=== PATIENT | female | born 1980 | race African-American/Black ===

== ENCOUNTER 2017-06-29 18:33 | Emergency (ER) | payer MEDICARE, MEDICAID ==
[2017-06-29 18:42] VITALS: BP 128/75
[2017-06-29] MEDS ORDERED: CLINDAMYCIN HCL 150 MG CAPSULE PO ONE (18:58)
--- NOTE | 2017-06-29 18:59 | ER Document Report ---
HPI - HPI Patient complains to provider of: Skin infection Onset: Yesterday Quality of pain: Achy Pain Level: 4 Context: Patient complains of a pustular skin lesion to right lower extremity that started to develop yesterday. Patient states she was treated for scabies last week but complains of continued skin lesions and itching. Patient does state that she did launder her bed linens as well. Associated Symptoms: Other - Tender skin lesion to right leg. denies: Fever Exacerbated by: Denies Relieved by: Denies Similar symptoms previously: No Recently seen / treated by doctor: Yes - ROS ROS below otherwise negative: Yes Systems Reviewed and Negative: Yes All other systems reviewed and negative - CONSTITUTIONAL Constitutional: DENIES: Fever, Chills - GASTROINTESTINAL Gastrointestinal: DENIES: Nausea - MUSCULOSKELETAL Musculoskeletal: REPORTS: Extremity pain - DERM Skin Color: Erythema Skin Problems: Pustule Past Medical History - General Information source: Patient - Social History Smoking Status: Current Every Day Smoker Smoking Education Provided: Yes Drug Abuse: None Occupation: None Family History: Reviewed & Not Pertinent - Past Medical History Cardiac Medical History: Reports: Hx Hypertension Endocrine Medical History: Reports: Hx Diabetes Mellitus Type 2 GI Medical History: Reports: Hx Gastroesophageal Reflux Disease Past Surgical History: Reports: Hx Appendectomy, Hx Cholecystectomy, Hx Gynecologic Surgery, Hx Herniorrhaphy, Hx Hysterectomy Vertical Provider Document - CONSTITUTIONAL Agree With Documented VS: Yes Exam Limitations: No Limitations General Appearance: WD/WN, No Apparent Distress - INFECTION CONTROL TRAVEL OUTSIDE OF THE [place] IN LAST 30 DAYS: No - HEENT HEENT: Atraumatic, Normocephalic - NECK Neck: Normal Inspection - RESPIRATORY Respiratory: Breath Sounds Normal, No Respiratory Distress O2 Sat by Pulse Oximetry: 97 - CARDIOVASCULAR Cardiovascular: Regular Rate, Regular Rhythm - MUSCULOSKELETAL/EXTREMETIES Musculoskeletal/Extremeties: MAEW, Tender - Tender pustular skin lesion to middle third of right lower leg very minimal indurated area to leg concerning for developing abscess - NEURO Level of Consciousness: Awake, Alert, Appropriate Motor/Sensory: No Motor Deficit - DERM Integumentary: Warm, Dry, Rash - Patient with erythematous skin lesions to bilateral upper and lower extremities concerning for scabies, skin lesions with excoriations and in webspace of hand and wrist area Course - Vital Signs Vital signs: Temp Pulse Resp BP Pulse Ox 99.3 F 89 20 128/75 H 97 11/30/17 18:41 06/29/17 18:41 06/29/17 18:41 06/29/17 18:41 06/29/17 18:41 Procedures - Incision and Drainage Right Leg Type: Simple I&D procedure: Sterile dressing applied Incision Method: Incision made with needle Amount/type of drainage: scant amount of purulent drainage Adult Front & Back picture: 1 - pustule Discharge - Discharge Clinical Impression: Abscess, Hx of scabies Condition: Stable Disposition: HOME, SELF-CARE Instructions: Abscess ([facility]), Anti-Mite Skin Creams, Clindamycin ([facility]), Scabies ([facility]) Additional Instructions: Return immediately for any new or worsening symptoms Followup with your primary care provider, call tomorrow to make a followup appointment Prescriptions: Clindamycin HCl [Cleocin Hcl] 300 mg PO QID #28 capsule Mupirocin [Bactroban 2% Ointment 22 gm] 1 applic TP TID #22 gm Permethrin [Elimite] 60 gm TP ONCE #60 gm Forms: Smoking Cessation Education Referrals: ETELVINA BAILEY MD [NO LOCAL MD] - Follow up as needed
== END 2017-06-29 19:19 | disposition home or self-care (01) ==
LOC: ER 18:33
PROC: 0H9KXZZ Drainage of Right Lower Leg Skin, External Approach (ICD-10-PCS; principal; 2017-06-29)
DX: L02.415 Cutaneous abscess of right lower limb (principal)
CPT/HCPCS: 99283; 10060; A9270

== ENCOUNTER 2017-07-17 18:48 | Emergency (ER) | payer MEDICARE, MEDICAID ==
[2017-07-17 18:55] VITALS: BP 120/77
[2017-07-17] MEDS ORDERED: KETOROLAC TROMETHAMINE INJ/PF 30 MG/1 ML SDV IM ONE (19:13)
--- NOTE | 2017-07-17 19:18 | ER Document Report ---
HPI - HPI Pain Level: 4 Notes: Patient is a 36-year-old female with a history of hypertension, diabetes, chronic low back pain who presents ED complaining of re-exacerbation of her lower back pain about an hour ago without any known injury. Patient states that she has had this pain in the past. Patient states the pain is in the right side and will occasionally radiate down into the right posterior leg. Patient states that her doctor usually gives her pills and shots for her pain, but did not specify as to what medicine specifically. She still eating and drinking w/o difficulty. She denies any surgeries or procedures to her lower back. She denies any previous history of abscesses. Patient does admit to smoking but denies IV drug use. Denies any headache, fever, neck pain, URI, sore throat, chest pain, palpitations, syncope, cough, shortness of breath, wheeze, dyspnea, abdominal pain, nausea/vomiting/diarrhea, urinary retention, dysuria, hematuria, loss of control of bowel or bladder, numbness/tingling, saddle anesthesia, muscle paralysis/weakness, or rash. - ROS Notes: REVIEW OF SYSTEMS: CONSTITUTIONAL : Denies fever, chills, or sweats. Denies recent illness. EENT: Denies eye, ear, throat, or mouth pain or symptoms. Denies nasal or sinus congestion or discharge. Denies throat, tongue, or mouth swelling or difficulty swallowing. CARDIOVASCULAR: Denies chest pain. Denies palpitations or racing or irregular heart beat. Denies ankle edema. RESPIRATORY: Denies cough, cold, or chest congestion. Denies shortness of breath, difficulty breathing, or wheezing. GASTROINTESTINAL: Denies abdominal pain or distention. Denies nausea, vomiting , or diarrhea. Denies blood in vomitus, stools, or per rectum. Denies black, tarry stools. Denies constipation. GENITOURINARY: Denies difficulty urinating, painful urination, burning, frequency, blood in urine, or discharge. FEMALE GENITOURINARY: Denies vaginal bleeding, heavy or abnormal periods, irregular periods. Denies vaginal discharge or odor. MUSCULOSKELETAL: see hpi SKIN: Denies rash, lesions or sores. NEUROLOGICAL: Denies dizziness or lightheadedness. Denies headache. Denies weakness or paralysis or loss of use of either side. Denies problems with gait or speech. Denies sensory loss, numbness, or tingling. Denies seizures. ALL OTHER SYSTEMS REVIEWED AND NEGATIVE. Dictation was performed using [employer] voice recognition software Past Medical History - Social History Smoking Status: Current Every Day Smoker Family History: Reviewed & Not Pertinent - Past Medical History Cardiac Medical History: Reports: Hx Hypertension Endocrine Medical History: Reports: Hx Diabetes Mellitus Type 2 Renal/ Medical History: Denies: Hx Peritoneal Dialysis GI Medical History: Reports: Hx Gastroesophageal Reflux Disease Past Surgical History: Reports: Hx Appendectomy, Hx Cholecystectomy, Hx Gynecologic Surgery, Hx Herniorrhaphy, Hx Hysterectomy Vertical Provider Document - CONSTITUTIONAL Agree With Documented VS: Yes Notes: PHYSICAL EXAMINATION: GENERAL: Well-appearing, well-nourished and in no acute distress. LUNGS: Breath sounds clear to auscultation bilaterally and equal. No wheezes rales or rhonchi. HEART: Regular rate and rhythm without murmurs, rubs, gallops. ABDOMEN: Soft, nontender, nondistended abdomen. No guarding, no rebound. No masses appreciated. Normal bowel sounds present. No CVA tenderness bilaterally. No pulsatile mass Musculoskeletal: LE's b/l: FROM to passive/active. Strength 5+/5. No deficits noted. No bony tenderness of extremities. Back: FROM to passive/active. Strength 5+/5. No vertebral point tenderness, stepoffs, or deformities. No other bony tenderness, erythema, swelling, or ecchymosis. SLR negative b/l. + tenderness to the rt L-paraspinal mm and rt SI jt. Extremities: No cyanosis, clubbing, or edema b/l. Peripheral pulses 2+. Capillary refill less than 2 seconds. NEUROLOGICAL: Normal speech, ataxic gait. Normal sensory, motor exams. Reflexes 2+ b/l. PSYCH: Normal mood, normal affect. SKIN: Warm, Dry, normal turgor, no rashes or lesions noted. - INFECTION CONTROL TRAVEL OUTSIDE OF THE [place] IN LAST 30 DAYS: No - RESPIRATORY O2 Sat by Pulse Oximetry: 98 Course - Re-evaluation Re-evalutation: 07/17/17 19:17 Patient is an afebrile, well-hydrated, 36-year-old female who presents to the ED with acute on chronic low back pain, suspect muscle strain and possible spasm. Vitals are stable. PE is otherwise unremarkable for any focal neurological deficits. No imaging or labs warranted at this time based on H&P. Toradol given IM today. Low suspicion for any meningitis, fracture, expanding /ruptured AAA, cauda equina syndrome, epidural mass lesion/abscess, herniated disc causing severe spinal stenosis, or other systemic infection at this time. Patient is aware that her condition can change from initial presentation and that she needs monitor symptoms closely for any acute changes. I will send her home with a prescription for naproxen and baclofen. Recheck with your PCM in 3- 5 days. Consider consult with orthopedics physical therapy. Return to the ED with any worsening/concerning symptoms otherwise as reviewed in discharge. Patient is in agreement. - Vital Signs Vital signs: Temp Pulse Resp BP Pulse Ox 98.7 F 85 18 120/77 98 07/17/17 18:54 07/17/17 18:54 07/17/17 18:54 07/17/17 18:54 07/17/17 18:54 Discharge - Discharge Clinical Impression: Low back pain Qualifiers: Chronicity: acute Back pain laterality: right Sciatica presence: without sciatica Qualified Code(s): M54.5 - Low back pain Condition: Stable Disposition: HOME, SELF-CARE Instructions: Low Back Pain ([facility]), Muscle Strain ([facility]), Warm Packs ([facility]), Ice Packs ([facility]) Additional Instructions: Rest, Ice Tylenol/ibuprofen as needed Light stretches daily Strength exercises as able Moist heat and massage may help F/u with your PCP in 3-5 days for a recheck Consider consult(s) with Orthopedics/physical therapy for ongoing/worsening symptoms Return to the ED with any worsening symptoms and/or development of fever, headache, chest pain, palpitations, syncope, shortness of breath, trouble breathing, abdominal pain, n/v/d, blood in stool/urine, loss of control of bowel /bladder, urinary retention, muscle weakness/paralysis, saddle anesthesia, numbness/tingling, or other worsening symptoms that are concerning to you. Prescriptions: Baclofen [Baclofen 10 mg Tablet] 5 - 10 mg PO BID PRN #10 tablet PRN Reason: Naproxen 500 mg PO BID PRN #30 tablet PRN Reason: Forms: Smoking Cessation Education Referrals: [facility] [Provider Group] - Follow up as needed
== END 2017-07-17 19:49 | disposition home or self-care (01) ==
LOC: ER 18:48
DX: M54.5 Low back pain (principal); G89.29 Other chronic pain; I10 Essential (primary) hypertension; E11.9 Type 2 diabetes mellitus without complications; F17.200 Nicotine dependence, unspecified, uncomplicated
CPT/HCPCS: 99283; 96372; J1885

== ENCOUNTER 2017-07-27 09:43 | Observation (INO) | payer MEDICARE, MEDICAID ==
[2017-07-27] MEDS ORDERED: ASPIRIN 325 MG TABLET PO ONE (10:21)
--- NOTE | 2017-07-27 10:39 | ER Document Report ---
ED General - General Chief Complaint: Shortness Of Breath Stated Complaint: CHEST PAIN,SHORTNESS OF BREATH Time Seen by Provider: 07/27/17 10:13 Notes: 36-year-old female presents with chest pain left sided pleuritic since 8 AM, constant and non-positional. Nonradiating. Positive shortness of breath. Onset while doing dishes. She has a history of chest pain and has had 3 stress test but not "for a long time." She has intermittent right leg swelling which is not active now. No cough hemoptysis or history of blood clots. She takes a regimen of medications suggesting that she may have risk factors for cardiac disease including metoprolol and statin. TRAVEL OUTSIDE OF THE [place] IN LAST 30 DAYS: No - Related Data Allergies/Adverse Reactions: Sulfa (Sulfonamide Antibiotics) Allergy (Verified 07/17/17 18:50) Past Medical History - Social History Smoking Status: Never Smoker Family History: Reviewed & Not Pertinent - Past Medical History Cardiac Medical History: Reports: Hx Hypertension Endocrine Medical History: Reports: Hx Diabetes Mellitus Type 2 Renal/ Medical History: Denies: Hx Peritoneal Dialysis GI Medical History: Reports: Hx Gastroesophageal Reflux Disease Past Surgical History: Reports: Hx Appendectomy, Hx Cholecystectomy, Hx Gynecologic Surgery, Hx Herniorrhaphy, Hx Hysterectomy Review of Systems - Review of Systems Notes: REVIEW OF SYSTEMS GEN: Denies fever, chills, weight loss ENT: Denies sore throat, nasal discharge, ear pain EYES: Denies blurry vision, eye pain, discharge CV: Pain no edema RESP: Cough no wheezing or shortness of breath GI: Denies abdominal pain, nausea, vomiting, diarrhea MSK: Denies joint pain/swelling, edema, SKIN: Denies rash, skin lesions LYMPH: Denies swollen glands/lymph nodes NEURO: Denies headache, focal weakness or numbness, dizziness PSYCH: Denies depression, suicidal or homicidal ideation PHYSICAL EXAMINATION General: No acute distress, well-nourished Head: Atraumatic, normocephalic ENT: Mouth normal, oropharynx moist, no exudates or tonsillar enlargement Eyes: Conjunctiva normal, pupils equal, lids normal Neck: No JVD, supple, no guarding CVS: Normal rate, regular rhythm, no murmurs Resp: No resp distress, equal and normal breath sounds bilaterally GI: Nondistended, soft, no tenderness to palpation, no rebound or guarding Ext: No deformities, no edema, normal range of motion in upper and lower ext Back: No CVA or midline TTP Skin: No rash, warm Lymphatic: No lymphadeopathy noted Neuro: Awake, alert. Face symmetric. GCS 15. Physical Exam - Vital signs Vitals: Resp 9 L 07/27/17 10:22 Course - Re-evaluation Re-evalutation: 07/27/17 10:37 36-year-old female presented with chest pain or shortness of breath which has characteristics both of pulmonary embolus and ischemic heart disease. No useful history in our system and is actually followed in [place]. She is new to [place]. Her vital signs are normal but her EKG shows diffuse T-wave inversions. This could either be seen with pulmonary embolus or ischemia. I will send a d-dimer as well as treat her with aspirin and nitroglycerin, troponin will be pending as well. 07/27/17 11:26 D-dimer negative. Pain slightly improved with nitroglycerin. Aspirin is been given. Will admit. Spoke with Dr. cavanaugh who accepted. - Vital Signs Vital signs: Temp Pulse Resp BP Pulse Ox 13 105/63 100 07/27/17 11:16 07/27/17 11:16 07/27/17 11:16 - Laboratory Result Diagrams: 07/27/17 10:20 07/27/17 10:20 Laboratory results interpreted by me: 07/27/17 07/27/17 10:20 10:20 Lymphocytes % 46.5 H Potassium 3.5 L Glucose 186 H - EKG Interpretation by Wi EKG shows normal: Sinus rhythm Rate: Normal Rhythm: NSR When compared to previous EKG there are: Previous EKG unavailable Additional EKG results interpreted by me: 07/27/17 10:38 T-wave inversion in nearly every lead, no priors. No ST elevation or depression noted. Critical Care Note - Critical Care Note Total time excluding time spent on procedures (mins): 32 - The above patient is critically ill. Not including procedures, but including direct re-evaluations, speaking with patient and/or consultants, interpreting results, and documenting , I spent the total amount of minute listed listed above on critical care time Discharge - Discharge Clinical Impression: Unstable angina Condition: Good Disposition: ADMITTED INPATIENT Admitting Provider: Hospitalist - Treatment Unit Admitted: Telemetry - [place]
[2017-07-27 10:47] LABS: ABSOLUTE BASOPHILS # (AUTO) 0.1 10^3/uL (0.0-0.2); ABSOLUTE EOSINOPHILS # (AUTO) 0.2 10^3/uL (0.0-0.6); ABSOLUTE LYMPHOCYTES (AUTO) 3.5 10^3/uL (0.5-4.7); ABSOLUTE MONOCYTES (AUTO) 0.6 10^3/uL (0.1-1.4); ABSOLUTE NEUT (AUTO) 3.2 10^3/uL (1.7-8.2); BASOPHILS % (AUTO) 0.7 % (0-2); EOSINOPHILS % (AUTO) 2.2 % (0-6); HEMATOCRIT 40.2 % (36.0-47.0); LYMPHOCYTES % (AUTO) 46.5 % (13-45); MEAN CORPUSCULAR HGB CONC 32.2 g/dL (32.0-36.0); MEAN CORPUSCULAR VOLUME 87 fl (80-97); MONOCYTES % (AUTO) 7.8 % (3-13); PLATELET COUNT 281 10^3/uL (150-450); RED BLOOD COUNT 4.63 10^6/uL (3.72-5.28); RED CELL DISTRIBUTION WIDTH 13.6 % (11.5-14.0); SEGMENTED NEUTROPHILS % (AUTO) 42.8 % (42-78); TOTAL CELLS COUNTED % (AUTO) 100 %; WHITE BLOOD COUNT 7.4 10^3/uL (4.0-10.5)
[2017-07-27] MEDS: NITROGLYCERIN 0.4 MG/TAB 25 TAB/BOTTLE SL PRN ×2 (11:06→11:18)
[2017-07-27 11:10] LABS: ANION GAP 12 (5-19); BLOOD UREA NITROGEN 13 mg/dL (7-20); CARBON DIOXIDE 28 mmol/L (22-30); CHLORIDE 105 mmol/L (98-107); GLUCOSE 186 mg/dL (75-110); POTASSIUM 3.5 mmol/L (3.6-5.0); SODIUM 144.9 mmol/L (137-145)
[2017-07-27] MEDS ORDERED: NITROGLYCERIN 0.4 MG/TAB 25 TAB/BOTTLE SL PRN (11:43)
[2017-07-27] MEDS ORDERED: MORPHINE SULFATE 10 MG/ML INJ IV PRN (11:43)
[2017-07-27] MEDS ORDERED: MAG HYDROX/AL HYDROX/SIMETH SUSP 30 ML UDCUP PO PRN (11:43)
[2017-07-27] MEDS ORDERED: ONDANSETRON HCL INJ/PF 4 MG/2 ML SDV IV PRN (11:43)
[2017-07-27] MEDS ORDERED: NORMAL SALINE 1000 ML 1,000 ML IV PRN (11:43)
[2017-07-27] MEDS ORDERED: NAPROXEN 250 MG TABLET PO PRN (12:15)
[2017-07-27] MEDS: LANSOPRAZOLE 30 MG TAB.RAP.DR PO SCH (17:50)
[2017-07-27] MEDS: BACLOFEN 10 MG TABLET PO PRN (17:51)
--- NOTE | 2017-07-27 18:54 | XCELERA REPORT ---
[address] [address] Transthoracic Echocardiogram Report Name: BRIAN JOVEL Age: 36 yrs Gender: Female : 1980 Patient Status: Inpatient Patient Location: [address] [place] [address] Study Date: 07/27/2017 02:21 PM Height: 69 in Weight: 197 lb BSA: 2.1 m2 Procedure: A complete two-dimensional transthoracic echocardiogram was performed (2D, M-mode, spectral and color flow Doppler). The study was technically adequate with some images being suboptimal in quality. Reason For Study: Chest pain Ordering Physician: IAN PERSAUD Performed By: Jeni Curry Interpretation Summary The left ventricular ejection fraction is normal. There is mild to moderate concentric left ventricular hypertrophy. The left ventricle is grossly normal size. LV diastolic function not assessed. Wall motion cannot be accurately commented on, but no definite regional wall motion abnormalities noted. The right ventricular systolic function is normal. The left atrial size is normal. The right atrium is normal in size There is a trace amount of mitral regurgitation There is no mitral valve stenosis. There is no aortic valve stenosis No aortic regurgitation is present. There is a trace or physiologic amount of tricuspid regurgitation Tricuspid regurgitation jet envelope not well defined to measure RV systolic pressure accurately. The aortic root is not well visualized but is probably normal size. The inferior vena cava was not visualized Minimal pericardial effusion. MMode/2D Measurements & Calculations RVDd: 2.4 cm LVIDd: 4.6 cm FS: 44.3 % Ao root diam: 3.0 cm IVSd: 1.3 cm LVIDs: 2.6 cm EDV(Teich): 96.9 ml LVPWd: 1.3 cm ESV(Teich): 23.6 ml Ao root area: 7.0 cm2 EF(Teich): 75.7 % Doppler Measurements & Calculations MV E max liv: MV dec slope: Ao V2 max: LV V1 max P.4 cm/sec 129.9 cm/sec 5.1 mmHg MV A max liv: 608.1 cm/sec2 Ao max PG: LV V1 max: 76.6 cm/sec MV dec time: 6.7 mmHg 113.2 cm/sec MV E/A: 1.2 0.16 sec PA V2 max: 115.2 cm/sec PA max P.3 mmHg Left Ventricle The left ventricle is grossly normal size. There is mild to moderate concentric left ventricular hypertrophy. The left ventricular ejection fraction is normal. LV diastolic function not assessed. Wall motion cannot be accurately commented on, but no definite regional wall motion abnormalities noted. Right Ventricle The right ventricle is grossly normal size. There is normal right ventricular wall thickness. The right ventricular systolic function is normal. Atria The right atrium is normal in size. The left atrial size is normal. Interarterial septum not well visualized and not well dopplered. Cannot comment on ASD/PFO presence. Mitral Valve The mitral valve is grossly normal. There is no mitral valve stenosis. There is a trace amount of mitral regurgitation. Aortic Valve The aortic valve is grossly normal. There is no aortic valve stenosis. No aortic regurgitation is present. Tricuspid Valve The tricuspid valve is not well visualized, but is grossly normal. There is no tricuspid stenosis. There is a trace or physiologic amount of tricuspid regurgitation. Tricuspid regurgitation jet envelope not well defined to measure RV systolic pressure accurately. Pulmonic Valve The pulmonic valve is not well visualized. Great Vessels The aortic root is not well visualized but is probably normal size. The inferior vena cava was not visualized. Effusions Minimal pericardial effusion. : IAN PERSAUD > Hanna Farrar
[2017-07-27] MEDS ORDERED: INFLUENZA ADLT QUAD (36MOS+) 2017-18 VAC 0.5 ML SYR IM PRN (19:28)
[2017-07-27] MEDS ORDERED: DEXTROSE 40% GEL 15 GM TUBE X 2 PO PRN (21:30)
[2017-07-27] MEDS ORDERED: GLUCAGON,HUMAN RECOMB 1 MG INJ IM PRN (21:30)
[2017-07-27] MEDS ORDERED: DEXTROSE 50%-WATER SYRINGE 12.5 GM/25 ML DOSE IV PRN (21:30)
[2017-07-27] MEDS ORDERED: DEXTROSE 50%-WATER SYRINGE 25 GM/50 ML DOSE IV PRN (21:30)
[2017-07-27] MEDS ORDERED: DEXTROSE 40% GEL 15 GM TUBE PO PRN (21:30)
[2017-07-27] MEDS ORDERED: ATENOLOL 50 MG TABLET PO SCH (22:00)
[2017-07-27] MEDS ORDERED: INSULIN GLARGINE,HUM.REC.ANLOG 300 UNIT/3 ML INSULN.PEN SUBCUT SCH (22:00)
[2017-07-27] MEDS ORDERED: ATORVASTATIN CALCIUM 80 MG TABLET PO SCH (22:00)
[2017-07-27] MEDS: METOPROLOL TARTRATE 25 MG TABLET PO SCH (22:28)
[2017-07-27] MEDS: INSULIN LISPRO 100 UNIT/ML 3 ML VIAL SUBCUT PRN (22:28)
[2017-07-28] MEDS: LANSOPRAZOLE 30 MG TAB.RAP.DR PO SCH (05:15)
[2017-07-28 05:51] LABS: CHOLESTEROL 272.33 mg/dL (0-200)
[2017-07-28 05:56] LABS: URINE AMPHETAMINES SCREEN NEGATIVE; URINE BARBITURATES SCREEN NEGATIVE; URINE BENZODIAZEPINES SCREEN NEGATIVE; URINE COCAINE SCREEN NEGATIVE; URINE MARIJUANA (THC) SCREEN NEGATIVE; URINE METHADONE SCREEN NEGATIVE; URINE PHENCYCLIDINE SCREEN NEGATIVE
[2017-07-28 06:01] LABS: TRIGLYCERIDES 602 mg/dL (<150)
[2017-07-28 06:02] LABS: DIRECT LDL 109 mg/dL (<100)
[2017-07-28] MEDS ORDERED: ASPIRIN 81 MG TABLET, CHEWABLE PO SCH (10:00)
[2017-07-28] MEDS ORDERED: DOCUSATE SODIUM 100 MG CAPSULE PO SCH (10:00)
--- NOTE | 2017-07-28 11:46 | PDOC CONSULTATION ---
Consultation Consult Date: 07/27/17 Attending physician:: IAN PERSAUD Consult reason:: Chest pain History of Present Illness Admission Date/PCP: 07/27/17 11:33 Patient complains of: Chest pain History of Present Illness: 36-year-old female presents with chest pain left sided pleuritic since 8 AM on day of admission, constant and non-positional. Nonradiating. Positive shortness of breath. Onset while doing dishes. Patient describes the discomfort as sharp. She does have significant cardiac risk factors therefore was admitted. Initial cardiac enzymes are negative. EKG does show some nonspecific T-wave inversions. She has a history of chest pain and has had 3 stress test but not "for a long time." She has intermittent right leg swelling which is not active now. No cough hemoptysis or history of blood clots. Patient does describe strong family history of coronary artery disease with her mother having had multiple myocardial infarctions. Past Medical History Cardiac Medical History: Reports: Hyperlipidema, Hypertension, Other - Diabetes mellitus, family history of premature CAD Denies: Congestive Heart Failure, Myocardial Infarction Pulmonary Medical History: Reports: Bronchitis Denies: Asthma, Chronic Obstructive Pulmonary Disease (COPD), Pneumonia, Tuberculosis Neurological Medical History: Denies: Seizures Endocrine Medical History: Reports: Diabetes Mellitus Type 2 Renal/ Medical History: Denies: End Stage Renal Disease GI Medical History: Reports: Gastroesophageal Reflux Disease Denies: Cirrhosis Musculoskeltal Medical History: Denies: Arthritis Psychiatric Medical History: Reports: Bipolar Disorder, Depression Hematology: Denies: Anemia, Bleeding Tendencies Past Surgical History Past Surgical History: Reports: Appendectomy, Cholecystectomy, Herniorrhaphy, Hysterectomy Social History Information Source: Patient Smoking Status: Current Every Day Smoker Drugs: None - Advance Directive Resuscitation Status: Full Code Family History Family History: CAD, Hypertension Parental Family History Reviewed: Yes Children Family History Reviewed: Yes Sibling(s) Family History Reviewed.: Yes Medication/Allergy Home Medications: Amlodipine Besylate [Norvasc 10 mg Tablet] 10 mg PO DAILY 07/27/17 Divalproex Sodium [Depakote] 500 mg PO Q12 07/27/17 Fluoxetine HCl [Prozac] 40 mg PO DAILY 07/27/17 Gabapentin [Neurontin 300 mg Capsule] 300 mg PO Q8 07/27/17 Glimepiride [Amaryl 4 mg Tablet] 4 mg PO Q12 07/27/17 Insulin Aspart [Novolog Flexpen] 5 units SQ MEALS 07/27/17 Insulin Degludec [Tresiba Flextouch U-200] 30 units SQ QHS 07/27/17 Levocetirizine Dihydrochloride [Xyzal] 5 mg PO DAILY 07/27/17 Metoprolol Tartrate [Lopressor 50 mg Tablet] 50 mg PO Q12 07/27/17 Ranitidine HCl [Zantac 150 mg Tablet] 150 mg PO BID 07/27/17 Allergies/Adverse Reactions: Sulfa (Sulfonamide Antibiotics) Allergy (Verified 07/17/17 18:50) Review of Systems Review of Systems: Please see history of present illness and past medical history as wall. Constitutional: No fever or chills reported. Head : No recent chronic headaches, recent head injury. Eyes: No recent eye pain, diplopia, redness, discharge, acute visual changes. Ears: No recent chronic ear pain, acute hearing loss, ear discharge. Oral cavity: No recent ulcerations, bleeding, oral cavity discomfort. Neck: No recent acute neck pain reported. Hematologic: No recent easy bruising or bleeding or hematologic malignancy reported. Lymphatic: No recent lymphatic malignancy, chronic lymphadenopathy reported yet Cardiovascular system review: See history of present illness. Respiratory system review: No recent chronic cough, hemoptysis, blood clots in the lungs reported. Mild Shortness of breath on exertion Gastrointestinal system review: Negative for any recent acute or chronic abdominal pain, hematemesis, melena, recent change in bowel habits. Genitourinary system review: No recent acute or chronic hematuria, flank pain, UTI etc. reported. Skin system review: Negative for any recent abnormal bruising, no rash, no pruritus reported. Neurologic: No prior history of strokes, mini strokes, seizure disorder. Psychologic: No history of major psychosis or major depression reported. Musculoskeletal: Minor aches and pains reported. No acute joint swelling reported. Endocrine: No recent polyuria, polydipsia, recent heat or cold intolerance. Physical Exam Vital Signs: Temp Pulse Resp BP Pulse Ox 98.1 F 76 16 140/83 H 98 07/28/17 03:49 07/28/17 03:49 07/28/17 03:49 07/28/17 03:49 07/28/17 03:49 Intake & Output 07/27/17 07/28/1707/29/17 06:59 06:59 06:59 Intake Total 522 Output Total 750 Balance -228 Weight 98.1 kg Exam: GENERAL: well-nourished and in no acute distress. Alert and oriented x3 HEAD: Atraumatic, normocephalic. EYES: Pupils equal round and reactive to light, extraocular movements intact, sclera anicteric, conjunctiva are normal. ENT: TMs normal, nares patent, oropharynx clear without exudates. Moist mucous membranes. No oral ulcerations or bleeding gums noted NECK: supple without lymphadenopathy. Trachea is central. No cervical or axillary lymphadenopathy noted. Carotids are 2+, JVD WNL LUNGS: Respiration seems nonlabored, no significant accessory muscle action noted. Breath sounds clear to auscultation bilaterally and equal noted. No wheezes rales or rhonchi noted. No significant dullness noted on percussion. CHEST: Palpation of the chest wall shows mild left-sided chest wall tenderness. No other significant abnormalities noted. 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 ABDOMEN: Soft, no significant tenderness appreciated, normoactive bowel sounds. No guarding, no rebound. No rigidity noted . No masses appreciated. EXTREMITIES: Pedal pulses are 1-2+, no calf tenderness noted. No clubbing or cyanosis.trace to 1+ pedal edema noted NEUROLOGICAL: Focused neurological exam showed no significant neurologic deficit. Normal speech, no focal weakness appreciated. PSYCH: Normal mood, normal affect. Judgment and insight within normal limits. SKIN: No significant ecchymosis, rash, ulcerations or signs of pruritus noted. MUSCULOSKELETAL EXAM: No significant joint swelling noted. Results Laboratory Results: 07/28/17 04:45 Triglycerides 602 H Cholesterol 272.33 H LDL Cholesterol Direct 109 H VLDL Cholesterol UNABLE TO CALCULATE HDL Cholesterol 27 L 07/27/17 07/27/17 07/27/17 12:35 17:38 23:41 Troponin I < 0.012 < 0.012 < 0.012 EKG Comments: NSR, Non specific T wave inversion possibly related to LVH Assessment & Plan - Diagnosis (1) Chest pain Qualifiers: Chest pain type: unspecified Qualified Code(s): R07.9 - Chest pain, unspecified Is this a current diagnosis for this admission?: Yes (2) Diabetes Qualifiers: Diabetes mellitus type: other specified (including BEULAH) Diabetes mellitus complication status: with unspecified complications Diabetes mellitus [facility] 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 Cardiac enzymes so far has been negative. Electrocardiogram did not show any definitive ST segment changes. Multiple differential diagnoses exist in this patient. In descending order of probability this includes underlying coronary artery disease, gastroesophageal reflux, musculoskeletal pain, referred pain from elsewhere, anxiety panic disorder etc.Patient has significant cardiac risk factors, which indicates that there is a intermediate probability of chest discomfort coming from underlying CAD. Feel that it would need to be evaluated further. Discussed evaluation to assess this. In this regard risk benefits of nuclear stress test and other alternative processes were discussed in detail. The patient prefers to undergo nuclear stress test. The small risk of radiation , myocardial infarction, , cardiac arrhythmias, respiratory distress etc. were discussed. Patient understood the risks and gave informed consent. Nuclear stress test was therefore scheduled. For risk evaluation, patient is also being scheduled for a 2-D echocardiogram. Patient questions were answered. Hypertension: Reasonably well controlled. Blood pressure goal in this patient is 135/85 or less. This was discussed with the patient. Currently blood pressure under reasonable control. Better medication for this patient are INEZ inhibitor/ARB/beta angy etc. discussed side effects of uncontrolled hypertension and also severe hypotension. Diabetes: Recommend good control of blood sugar. However should avoid any hypoglycemia. Patient being expertly managed by primary care Yohan Obesity: Discussed adverse effect of overweight/obesity on cardiovascular event rate, sleep apnea, diabetes and hypertension et cetera. Patient has been recommended weight loss. Patient advised in weight loss. In this regard portion control, substitution, calorie restriction and regular exercise plan discussed. Patient informed that I would be happy to help for outpatient management of weight loss. Risk associated with being overweight and obesity discussed. This included both mechanical and metabolic complications. Sleep apnea syndrome: Patient describes previous history of sleep study suggesting presence of sleep apnea. Discussed treatment of sleep apnea may help her hypertension, diabetes control and also may help with dysthymia. Dysthymia : Patient noted to have anxiety depression and other mood disorder. Discussed that treating sleep apnea is likely to help this. - Time Time Spent: 30 to 50 Minutes - More than 50% of the time spent coordinating care , discussing management plans with involved caregivers. Management plans discussed with involved personnels. Medical decision making was of moderate to high complexity, patient's has multiple comorbidities. Medications reviewed and adjusted accordingly: Yes
--- NOTE | 2017-07-28 11:49 | PDOC PROGRESS REPORT ---
Subjective Progress Note for:: 07/28/17 Subjective:: Patient claims to be doing fine without any significant worsening of chest pain. So far cardiac enzymes are negative. Patient did have a 2D echocardiogram and these results were reviewed. Nuclear stress test procedure was explained to the patient in detail. Risks benefits were discussed and informed consent was obtained. Alternatives were discussed. Patient informed that based on risk factors, physical exam, lab data findings and symptoms there is at least intermediate probability of underlying CAD. Nuclear stress test procedure was therefore scheduled. Reason For Visit: UNSTABLE ANGINA PACTORIS Physical Exam Vital Signs: Temp Pulse Resp BP Pulse Ox 98.4 F 69 16 139/73 H 96 07/28/17 07:34 07/28/17 07:34 07/28/17 07:34 07/28/17 07:34 07/28/17 07:34 Intake & Output 07/27/17 07/28/17 07/29/17 06:59 06:59 06:59 Intake Total 522 Output Total 750 Balance -228 Weight 98.1 kg Exam: GENERAL: well-nourished and in no acute distress. Alert and oriented x3 HEAD: Atraumatic, normocephalic. EYES: Pupils equal round and reactive to light, extraocular movements intact, sclera anicteric, conjunctiva are normal. ENT: TMs normal, nares patent, oropharynx clear without exudates. Moist mucous membranes. No oral ulcerations or bleeding gums noted NECK: supple without lymphadenopathy. Trachea is central. No cervical or axillary lymphadenopathy noted. Carotids are 2+, JVD WNL LUNGS: Respiration seems nonlabored, no significant accessory muscle action noted. Breath sounds clear to auscultation bilaterally and equal noted. No wheezes rales or rhonchi noted. No significant dullness noted on percussion. CHEST: Palpation of the chest wall shows no significant chest wall tenderness. No other significant abnormalities noted. 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 ABDOMEN: Soft, no significant tenderness appreciated, normoactive bowel sounds. No guarding, no rebound. No rigidity noted . No masses appreciated. EXTREMITIES: Pedal pulses are 1-2+, no calf tenderness noted. No clubbing or cyanosis.trace to 1+ pedal edema noted NEUROLOGICAL: Focused neurological exam showed no significant neurologic deficit. Normal speech, no focal weakness appreciated. PSYCH: Normal mood, normal affect. Judgment and insight within normal limits. SKIN: No significant ecchymosis, rash, ulcerations or signs of pruritus noted. MUSCULOSKELETAL EXAM: No significant joint swelling noted. Results Laboratory Results: 07/28/17 04:45 Triglycerides 602 H Cholesterol 272.33 H LDL Cholesterol Direct 109 H VLDL Cholesterol UNABLE TO CALCULATE HDL Cholesterol 27 L 07/27/17 07/27/17 07/27/17 12:35 17:38 23:41 Troponin I < 0.012 < 0.012 < 0.012 EKG Comments: Telemetry strips shows sinus rhythm without any sustained tacky or bradycardia arrhythmias. 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 Qualified Code(s): E13.8 - Other specified diabetes mellitus with unspecified complications Is this a current diagnosis for this admission?: Yes (3) HTN (hypertension) Qualifiers: Hypertension type: essential hypertension Qualified Code(s): I10 - Essential (primary) hypertension (4) Obesity Qualifiers: Obesity type: unspecified obesity type Body mass index: BMI 30.0-30.9 Is this a current diagnosis for this admission?: Yes (5) Dysthymia Is this a current diagnosis for this admission?: Yes (6) Sleep apnea syndrome Qualifiers: Sleep apnea type: unspecified type Qualified Code(s): G47.30 - Sleep apnea , unspecified Is this a current diagnosis for this admission?: Yes - Notes Notes: Chest pain improved. Nuclear stress test completed without any complications. Once reviewed an addendum will be made. Patient was seen before stress test and also during the stress test. Diabetes: Recommend better control of diabetes. Patient has hypo-and hyperglycemia. Hypertension: Currently stable. Blood pressure goal is 135/85 or less. Obesity: Patient has been encouraged to lose weight. Dysthymia: Continue current regimen. Sleep apnea syndrome: Patient will benefit from reinstitution of CPAP therapy. Discussed that depending on her previous sleep study results, she may or may not need to repeat the sleep study. Addendum: Patient was seen after the stress test was completed. Results were discussed. Discussed that occasionally single-vessel disease or balanced ischemia could be missed. Patient was advised aggressive risk factor modification and medical management. Patient questions whether answered. Patient offered appointment. Patient told that she would immensely benefit from reinstitution of diagnosis of sleep apnea and CPAP therapy. Patient given my card to follow-up with me if she wishes. - Time Time with patient: Greater than 35 minutes - More than 50% of the time spent coordinating care, discussing management plans with involved caregivers. Management plans discussed with involved personnels. Medical decision making was of moderate to high complexity, patient's has multiple comorbidities. Medications reviewed and adjusted accordingly: Yes - More than 50% of the time spent
[2017-07-28] MEDS: METOPROLOL TARTRATE 25 MG TABLET PO SCH (11:55)
[2017-07-28] MEDS: BACLOFEN 10 MG TABLET PO PRN (11:56)
[2017-07-28] MEDS: INSULIN LISPRO 100 UNIT/ML 3 ML VIAL SUBCUT PRN (12:37)
--- NOTE | 2017-07-28 13:03 | DRAGON STRESS TEST REPORT ---
INTRAVENOUS LEXISCAN CARDIOLITE STRESS TEST USING SINGLE PHOTON EMMISION COMPUTERIZED TOMOGRAPHIC. DATE OF PROCEDURE: July 28, 2017 INDICATION : Chest pain and shortness of breath CARDIAC RISK FACTORS: Diabetes, hypertension, dyslipidemia RESTING EKG: Sinus rhythm with minor nonspecific T-wave inversion in lateral chest leads STRESS EKG: No significant changes noted with LexiScan bolus REASON FOR TERMINATION: Protocol. PROCEDURE REPORT: Baseline heart rate 70 beats per minute with blood pressure of 145/92. Patient had no significant complaints. Heart rate at 2 minutes post bolus 96 with a blood pressure of 150/74. 3 minutes post bolus heart rate 86 with blood pressure of 161/86. No significant EKG changes were noted. Patient had no significant complaints during the procedure or postprocedure. Patient injected with Aminophyllin 75 mg at 3 minutes or later after Lexiscan bolus. CONCLUSIONS: Normal EKG and hemodynamic response to IV LexiScan. NUCLEAR DATA: At rest the patient was given 13.17 millicuries of technetium 99 sestamibi injected intravenously. As per protocol rest gated SPECT images were obtained. Subsequently the patient was given intravenous LexiScan at a dose of 0.4 mg in 5 mL intravenously, followed by flush with normal saline. Subsequently the stress dose of 40.5 millicuries of technetium 99 sestamibi was injected intravenously. As per protocol stress gated images were obtained. NUCLEAR INTERPRETATION: Both raw and processed data were used for interpretation. Visual, qualitative, computer-generated quantitative data was used. There was good myocardial uptake of technetium compound. Motion artifact and soft tissue attenuations were noted. Increased visceral uptake was noted. Mild decreased uptake noted in the mid anterior wall and stress imaging, this is felt to be mostly related to differences in breast attenuation as no corresponding regional wall motion abnormalities were noted on gated imaging. However clinical correlation is requested. No definitive areas of fixed perfusion defect or scars noted. EKG gated imaging showed LV EF at 62 %, rest and stress gated EF similar visually. T. I D. ratio was 1.11. Lung heart ratio noted to be within normal limits 0.22. No significant extracardiac and abnormal radiotracer activities were noted. RV free wall uptake was noted to be WNL. IMPRESSION: Also refer to comments under nuclear interpretation. Also test results needs to be interpreted in the context of pretest probability. 1. There is no definitive scintigraphic evidence of LexiScan induced myocardial ischemia. Mild decreased uptake noted in the mid anterior wall and stress imaging, this is felt to be mostly related to differences in breast attenuation as no corresponding regional wall motion abnormalities were noted on gated imaging. However clinical correlation is requested 2. There is no definitive scintigraphic evidence of myocardial infarction/scar. 3. EKG gated imaging shows left ventricular ejection fraction of approximately 62 %. No definite regional wall motion abnormalities were noted. 4. Clinical correlation requested as occasionally single vessel disease or balanced ischemia could be missed. In approximately 10% of the cases Lexiscan may not cause adequate vasodilatory stress. RECOMMENDATIONS: Aggressive risk factor modification, medical therapy. Clinical correlation with echocardiogram derived ejection fraction. Inability to exercise by itself can lead to increased cardiovascular event risks. Consider cardiology consultation and or follow-up if clinically indicated. I AM AVAILABLE FOR CARDIOLOGY CONSULTATION AND FOLLOWUP IF REQUESTED BY PMTeresa Farrar M.D., MEHDI [employer] Painter companion caregiver, Board certified in cardiovascular diseases, Nuclear cardiology, Echocardiography Cardiac CT and cardiac MRI Ph. [phone] [facility]OSPITALTeresa
[2017-07-28 14:46] VITALS: BP 136/73
[2017-07-28] MEDS ORDERED: AMINOPHYLLINE INJ/PF 250 MG/10 ML SDV IV ONE (15:00)
[2017-07-28] MEDS ORDERED: REGADENOSON INJ 0.4 MG/5 ML DISP.SYRIN IV ONE (15:00)
--- NOTE | 2017-07-28 15:27 | PDOC H&P ---
History of Present Illness Admission Date/PCP: 07/27/17 11:33 Patient complains of: Chest pain History of Present Illness: BRIAN JOVEL is a 36 year old female with a history of DVTs, hypertension, hyperlipidemia and tobacco abuse presenting with a one-day history of chest pain. Patient states that 7 AM this morning she is washing dishes when she started having pain in the middle of her chest. The pain was sharp and aching. It was not radiating anywhere. The pain stopped after 2 doses of nitro. Patient states while she was having the chest pain she felt lightheaded and faint and as if she could not catch her breath. Patient states a long time ago the same thing happened about 4-5 years ago. Patient said at that time she came in she had a stress test and everything was okay. At this time patient is chest pain-free. ED patient was evaluated and her initial troponin was negative. Hospitalist was called to bring patient in for observation for ACS rule out. Past Medical History Cardiac Medical History: Reports: Hyperlipidema, Hypertension Denies: Congestive Heart Failure, Myocardial Infarction Pulmonary Medical History: Reports: Bronchitis Denies: Asthma, Chronic Obstructive Pulmonary Disease (COPD), Pneumonia, Tuberculosis Neurological Medical History: Denies: Seizures Endocrine Medical History: Reports: Diabetes Mellitus Type 2 Renal/ Medical History: Denies: End Stage Renal Disease GI Medical History: Reports: Gastroesophageal Reflux Disease Denies: Cirrhosis Musculoskeltal Medical History: Denies: Arthritis Psychiatric Medical History: Reports: Bipolar Disorder, Depression Hematology: Denies: Anemia, Bleeding Tendencies Past Surgical History Past Surgical History: Reports: Appendectomy, Cholecystectomy, Herniorrhaphy, Hysterectomy Social History Smoking Status: Current Every Day Smoker Drugs: None - Advance Directive Resuscitation Status: Full Code Family History Family History: DM, Hypertension Parental Family History Reviewed: No Children Family History Reviewed: No Sibling(s) Family History Reviewed.: No Medication/Allergy Home Medications: Amlodipine Besylate [Norvasc 10 mg Tablet] 10 mg PO DAILY 07/27/17 Divalproex Sodium [Depakote] 500 mg PO Q12 07/27/17 Fluoxetine HCl [Prozac] 40 mg PO DAILY 07/27/17 Gabapentin [Neurontin 300 mg Capsule] 300 mg PO Q8 07/27/17 Glimepiride [Amaryl 4 mg Tablet] 4 mg PO Q12 07/27/17 Insulin Aspart [Novolog Flexpen] 5 units SQ MEALS 07/27/17 Insulin Degludec [Tresiba Flextouch U-200] 30 units SQ QHS 07/27/17 Levocetirizine Dihydrochloride [Xyzal] 5 mg PO DAILY 07/27/17 Metoprolol Tartrate [Lopressor 50 mg Tablet] 50 mg PO Q12 07/27/17 Ranitidine HCl [Zantac 150 mg Tablet] 150 mg PO BID 07/27/17 Aspirin [Adult Aspirin Regimen] 81 mg PO DAILY #30 tablet. 07/28/17 Atorvastatin Calcium [Lipitor 40 mg Tablet] 40 mg PO QHS 30 Days #30 tablet Fenofibrate Nanocrystallized [Tricor 48 mg Tablet] 48 mg PO DAILY #30 tablet Allergies/Adverse Reactions: Sulfa (Sulfonamide Antibiotics) Allergy (Verified 07/17/17 18:50) Review of Systems Constitutional: ABSENT: chills, fever(s), headache(s), weight gain, weight loss Eyes: ABSENT: visual disturbances Ears: ABSENT: hearing changes Cardiovascular: PRESENT: chest pain, edema. ABSENT: dyspnea on exertion, orthropnea, palpitations Respiratory: ABSENT: cough, hemoptysis Gastrointestinal: ABSENT: abdominal pain, constipation, diarrhea, hematemesis, hematochezia, nausea, vomiting Genitourinary: ABSENT: dysuria, hematuria Musculoskeletal: ABSENT: joint swelling Integumentary: ABSENT: rash, wounds Neurological: ABSENT: abnormal gait, abnormal speech, confusion, dizziness, focal weakness, syncope Psychiatric: ABSENT: anxiety, depression, homidical ideation, suicidal ideation Endocrine: ABSENT: cold intolerance, heat intolerance, polydipsia, polyuria Hematologic/Lymphatic: ABSENT: easy bleeding, easy bruising Physical Exam Vital Signs: Temp Pulse Resp BP Pulse Ox 97.7 F 82 20 136/73 H 100 07/27/17 16:00 07/27/17 19:00 07/27/17 16:00 07/27/17 16:00 07/27/17 16:00 Intake & Output 07/26/17 07/27/17 07/28/17 06:59 06:59 06:59 Weight 89.2 kg General appearance: PRESENT: no acute distress, obese, well-developed, well- nourished Head exam: PRESENT: atraumatic, normocephalic Eye exam: PRESENT: conjunctiva pink, EOMI, PERRLA. ABSENT: scleral icterus Ear exam: PRESENT: normal external ear exam Mouth exam: PRESENT: moist, tongue midline Neck exam: ABSENT: carotid bruit, JVD, lymphadenopathy, thyromegaly Respiratory exam: PRESENT: clear to auscultation rubia. ABSENT: rales, rhonchi, wheezes Cardiovascular exam: PRESENT: RRR. ABSENT: diastolic murmur, rubs, systolic murmur Pulses: PRESENT: normal dorsalis pedis pul Vascular exam: PRESENT: normal capillary refill GI/Abdominal exam: PRESENT: normal bowel sounds, soft. ABSENT: distended, guarding, mass, organolmegaly, rebound, tenderness Rectal exam: PRESENT: deferred Extremities exam: PRESENT: full ROM. ABSENT: calf tenderness, clubbing, pedal edema Neurological exam: PRESENT: alert, awake, oriented to person, oriented to place , oriented to time, oriented to situation, CN II-XII grossly intact. ABSENT: motor sensory deficit Psychiatric exam: PRESENT: appropriate affect, normal mood. ABSENT: homicidal ideation, suicidal ideation Skin exam: PRESENT: dry, intact, warm. ABSENT: cyanosis, rash Results Laboratory Results: 07/27/17 07/27/17 12:35 17:38 Troponin I < 0.012 < 0.012 Assessment & Plan - Diagnosis (1) Chest pain Qualifiers: Chest pain type: unspecified Qualified Code(s): R07.9 - Chest pain, unspecified Is this a current diagnosis for this admission?: Yes Plan: Patient with chest pain. However presentation may be typical and diabetic. Patient has risk factors of hypertension, diabetes, hyperlipidemia, obesity and she smokes tobacco. Will continue to trend troponins, order cardiac echo and stress test. Will consult cardiology. Place patient on aspirin, beta-angy and statin. Will order hemoglobin A1c and lipid point panel for the morning. Can you as needed sublingual nitroglycerin and morphine as needed for chest pain. (2) Lipidemia Is this a current diagnosis for this admission?: Yes Plan: Lipid panel in the morning. (3) Diabetes Qualifiers: Diabetes mellitus type: other specified (including BEULAH) Diabetes mellitus complication status: with unspecified complications Diabetes mellitus mcc insulin use: unspecified mcc insulin use status Qualified Code(s): E13.8 - Other specified diabetes mellitus with unspecified complications Is this a current diagnosis for this admission?: Yes Plan: Check hemoglobin A1c and continue sliding scale insulin and patient home dose of insulin. (4) HTN (hypertension) Qualifiers: Hypertension type: essential hypertension Qualified Code(s): I10 - Essential (primary) hypertension Plan: Continue home medications and monitor. (5) Tobacco abuse Is this a current diagnosis for this admission?: Yes Plan: Patient on smoking cessation and offer patient nicotine patch. (6) Obesity Qualifiers: Obesity type: unspecified obesity type Body mass index: BMI 30.0-30.9 Is this a current diagnosis for this admission?: Yes Plan: Patient counseled on physical activity and weight loss. Patient also counseled on healthy diet. - Time Time Spent: 30 to 50 Minutes Anticipated discharge: Home Within: within 24 hours - Inpatient Certification Medical Necessity: Need For Continuous Telemetry Monitoring
--- NOTE | 2017-07-28 15:36 | PDOC DISCHARGE SUMMARY ---
General - Admit/Disc Date/PCP Admission Date/Primary Care Provider: 07/27/17 11:33 Discharge Date: 07/28/17 - Discharge Diagnosis (1) Chest pain Is this a current diagnosis for this admission?: Yes (2) Lipidemia Is this a current diagnosis for this admission?: Yes (3) Diabetes Is this a current diagnosis for this admission?: Yes (5) Tobacco abuse Is this a current diagnosis for this admission?: Yes (6) Obesity Is this a current diagnosis for this admission?: Yes - Additional Information Resuscitation Status: Full Code Discharge Diet: Cardiac, Diabetic Discharge Activity: Walk Frequently Prescriptions: Aspirin [Adult Aspirin Regimen] 81 mg PO DAILY #30 tablet. Atorvastatin Calcium [Lipitor 40 mg Tablet] 40 mg PO QHS 30 Days #30 tablet Fenofibrate Nanocrystallized [Tricor 48 mg Tablet] 48 mg PO DAILY #30 tablet Home Medications: Amlodipine Besylate [Norvasc 10 mg Tablet] 10 mg PO DAILY 07/27/17 Divalproex Sodium [Depakote] 500 mg PO Q12 07/27/17 Fluoxetine HCl [Prozac] 40 mg PO DAILY 07/27/17 Gabapentin [Neurontin 300 mg Capsule] 300 mg PO Q8 07/27/17 Glimepiride [Amaryl 4 mg Tablet] 4 mg PO Q12 07/27/17 Insulin Aspart [Novolog Flexpen] 5 units SQ MEALS 07/27/17 Insulin Degludec [Tresiba Flextouch U-200] 30 units SQ QHS 07/27/17 Levocetirizine Dihydrochloride [Xyzal] 5 mg PO DAILY 07/27/17 Metoprolol Tartrate [Lopressor 50 mg Tablet] 50 mg PO Q12 07/27/17 Ranitidine HCl [Zantac 150 mg Tablet] 150 mg PO BID 07/27/17 Aspirin [Adult Aspirin Regimen] 81 mg PO DAILY #30 tablet. 07/28/17 Atorvastatin Calcium [Lipitor 40 mg Tablet] 40 mg PO QHS 30 Days #30 tablet Fenofibrate Nanocrystallized [Tricor 48 mg Tablet] 48 mg PO DAILY #30 tablet History of Present Illness History of Present Illness: BRIAN JOVEL is a 36 year old female with a history of DVTs, hypertension, hyperlipidemia and tobacco abuse presenting with a one-day history of chest pain. Patient states that 7 AM this morning she is washing dishes when she started having pain in the middle of her chest. The pain was sharp and aching. It was not radiating anywhere. The pain stopped after 2 doses of nitro. Patient states while she was having the chest pain she felt lightheaded and faint and as if she could not catch her breath. Patient states a long time ago the same thing happened about 4-5 years ago. Patient said at that time she came in she had a stress test and everything was okay. At this time patient is chest pain-free. ED patient was evaluated and her initial troponin was negative. Hospitalist was called to bring patient in for observation for ACS rule out. Original H&P was dictated by myself Dr. Tess Virk. Hospital Course Hospital Course: Patient presented with complaint of chest pain. Because of her risk factors which include obesity, hypertension, diabetes, hyperlipidemia and smoking patient was brought in for observation for rule out ACS. Patient has serial troponins which were all negative. Cardiac echo was fairly normal and stress test was negative. Patient was continued on beta-angy, statin and aspirin. Patient was evaluated by cardiology. Patient was found to have hyperlipidemia with triglycerides of 602 cholesterol of 272 LDL of 109 VLDL could not be related and HDL of 27. Advised patient that she needs aggressive cholesterol control with physical activity and diet modification. Patient was started on atorvastatin 40 and TriCor milligrams p.o. daily. Patient should follow-up with her PCP to have repeat lipid studies done within the next month or so. Patient was counseled on smoking cessation. Patient is roughly at goal with her blood pressure with systolics in the 130s with diastolics in the 80s. It may require further adjustment of her blood pressure medications outside to achieve the goal of 130/80. Patient also has obesity and diet and physical activity was discussed and recommended for her. Fortunately patient diabetes is not well controlled with a hemoglobin A1c of 10.3. Patient will require further adjustments of her insulin and oral anti-hyperglycemics as outpatient with her PCP. Patient is chest pain-free at the time and is looking forward to being discharged home. Patient was given Dr. Farrar information to follow-up as outpatient. Physical Exam Vital Signs: Temp Pulse Resp BP Pulse Ox 97.7 F 83 16 136/73 H 99 07/28/17 14:33 07/28/17 14:33 07/28/17 14:33 07/28/17 14:33 07/28/17 14:33 Intake & Output 07/27/17 07/28/17 07/29/17 06:59 06:59 06:59 Intake Total 522 Output Total 750 Balance -228 Weight 98.1 kg General appearance: PRESENT: no acute distress, obese, well-developed, well- nourished Head exam: PRESENT: atraumatic, normocephalic Eye exam: PRESENT: conjunctiva pink, EOMI, PERRLA. ABSENT: scleral icterus Ear exam: PRESENT: normal external ear exam Mouth exam: PRESENT: moist, tongue midline Neck exam: ABSENT: carotid bruit, JVD, lymphadenopathy, thyromegaly Respiratory exam: PRESENT: clear to auscultation rubia. ABSENT: rales, rhonchi, wheezes Cardiovascular exam: PRESENT: RRR. ABSENT: diastolic murmur, rubs, systolic murmur Pulses: PRESENT: normal dorsalis pedis pul Vascular exam: PRESENT: normal capillary refill GI/Abdominal exam: PRESENT: normal bowel sounds, soft. ABSENT: distended, guarding, mass, organolmegaly, rebound, tenderness Rectal exam: PRESENT: deferred Extremities exam: PRESENT: full ROM. ABSENT: calf tenderness, clubbing, pedal edema Neurological exam: PRESENT: alert, awake, oriented to person, oriented to place , oriented to time, oriented to situation, CN II-XII grossly intact. ABSENT: motor sensory deficit Psychiatric exam: PRESENT: appropriate affect, normal mood. ABSENT: homicidal ideation, suicidal ideation Skin exam: PRESENT: dry, intact, warm. ABSENT: cyanosis, rash Results Laboratory Results: 07/28/17 04:45 Triglycerides 602 H Cholesterol 272.33 H LDL Cholesterol Direct 109 H VLDL Cholesterol UNABLE TO CALCULATE HDL Cholesterol 27 L 07/27/17 07/27/17 07/27/17 12:35 17:38 23:41 Troponin I < 0.012 < 0.012 < 0.012 Qualifiers [place]INT BEING DISCHARGED WITH ANY OF THE FOLLOWING DIAGNOSIS?: No Plan Time Spent: Less than 30 Minutes
[2017-07-29] MEDS ORDERED: FENOFIBRATE NANOCRYSTALLIZED 48 MG TABLET PO SCH (10:00)
--- NOTE | 2017-07-29 12:18 | EKG REPORT ---
SEVERITY:- ABNORMAL ECG - SINUS RHYTHM ABNORMAL T, CONSIDER ISCHEMIA, DIFFUSE LEADS : Confirmed by: Nely Santiago MD 29-Jul-2017 12:17:14
== END 2017-07-28 15:30 | disposition home or self-care (01) ==
LOC: ER 09:43 → INTOOBSV 11:33 → EH 11:33 → 4S 13:08
PROVIDERS: ADMIT Pediatrics; ATTEND Pediatrics
PROC: 3E0234Z Introduction of Serum, Toxoid and Vaccine into Muscle, Percutaneous Approach (ICD-10-PCS; principal; 2017-07-28)
DX: R07.81 Pleurodynia (principal); E78.5 Hyperlipidemia, unspecified; E13.65 Other specified diabetes mellitus with hyperglycemia; E13.649 Other specified diabetes mellitus with hypoglycemia without coma; E66.9 Obesity, unspecified; I10 Essential (primary) hypertension; F34.1 Dysthymic disorder; F17.200 Nicotine dependence, unspecified, uncomplicated; K21.9 Gastro-esophageal reflux disease without esophagitis; G47.30 Sleep apnea, unspecified; Z68.31 Body mass index [BMI] 31.0-31.9, adult; Z79.899 Other long term (current) drug therapy; Z79.82 Long term (current) use of aspirin; Z79.4 Long term (current) use of insulin; Z86.718 Personal history of other venous thrombosis and embolism; Z82.49 Family history of ischemic heart disease and other diseases of the circulatory system; Z90.49 Acquired absence of other specified parts of digestive tract; Z23 Encounter for immunization
CPT/HCPCS: 93005; 99291; 36415 ×2; 82962 ×2; 85025; 80048; 84484; 80307; 83036; 85379; 80061; 93306; 93017; 78452; 90686; 93010; G0378 ×3; A9500; J2785; A9270 ×12; J3490; J7030; J0280; Q9969; J1815

== ENCOUNTER 2018-05-07 16:43 | Emergency (ER) | payer MEDICARE, MEDICAID ==
[2018-05-07] MEDS ORDERED: KETOROLAC TROMETHAMINE 60 MG/2 ML SDV IM ONE (17:31)
[2018-05-07] MEDS ORDERED: ACETAMINOPHEN 325 MG TABLET PO ONE (17:31)
--- NOTE | 2018-05-07 18:04 | RADIOLOGY REPORT (SQ) ---
EXAM DESCRIPTION: CHEST 2 VIEWS COMPLETED DATE/TIME: 05/07/2018 5:41 pm REASON FOR STUDY: sob COMPARISON: None. EXAM PARAMETERS: NUMBER OF VIEWS: two views TECHNIQUE: Digital Frontal and Lateral radiographic views of the chest acquired. RADIATION DOSE: NA LIMITATIONS: none FINDINGS: LUNGS AND PLEURA: No opacities, masses or pneumothorax. No pleural effusion. MEDIASTINUM AND HILAR STRUCTURES: No masses or contour abnormalities. HEART AND VASCULAR STRUCTURES: Heart normal size. No evidence for failure. BONES: No acute findings. HARDWARE: None in the chest. OTHER: No other significant finding. IMPRESSION: NO ACUTE RADIOGRAPHIC FINDING IN THE CHEST. TECHNICAL DOCUMENTATION: JOB ID: [id number] [place]-72 2010 [employer]- All Rights Reserved Reading location - IP/workstation name: [email or web address] Schouer
[2018-05-07 18:23] LABS: A TYPE INFLUENZA AG NEGATIVE (NEGATIVE); B INFLUENZA AG NEGATIVE (NEGATIVE)
[2018-05-07] MEDS ORDERED: PREDNISONE 20 MG TABLET PO ONE (18:26)
[2018-05-07] MEDS ORDERED: ALBUTEROL SULFATE HFA (90 MCG/PUFF) 8 GM MDI (1 MDI/ER DISP) IH ONE (18:50)
--- NOTE | 2018-05-07 18:52 | ER Document Report ---
ED General - General Chief Complaint: Flu Symptoms Stated Complaint: COLD SYMPTOMS Time Seen by Provider: 05/07/18 17:24 TRAVEL OUTSIDE OF THE [place] IN LAST 30 DAYS: No - Related Data Allergies/Adverse Reactions: Sulfa (Sulfonamide Antibiotics) Allergy (Verified 05/07/18 17:22) Past Medical History - Social History Smoking Status: Current Every Day Smoker Frequency of alcohol use: None Drug Abuse: None Family History: CAD, Hypertension Patient has suicidal ideation: No Patient has homicidal ideation: No - Past Medical History Cardiac Medical History: Reports: Hx Hypercholesterolemia, Hx Hypertension Denies: Hx Congestive Heart Failure, Hx Heart Attack Pulmonary Medical History: Reports: Hx Bronchitis Denies: Hx Asthma, Hx COPD, Hx Pneumonia, Hx Tuberculosis Neurological Medical History: Denies: Hx Seizures Endocrine Medical History: Reports: Hx Diabetes Mellitus Type 2 Renal/ Medical History: Denies: Hx End Stage Renal Disease, Hx Kidney Stones, Hx Peritoneal Dialysis GI Medical History: Reports: Hx Gastroesophageal Reflux Disease, Hx Ulcer. Denies: Hx Cirrhosis Musculoskeletal Medical History: Denies Hx Arthritis, Denies Hx Multiple Sclerosis Psychiatric Medical History: Reports: Hx Bipolar Disorder, Hx Depression Denies: Hx Schizophrenia Past Surgical History: Reports: Hx Appendectomy, Hx Cholecystectomy, Hx Gynecologic Surgery, Hx Herniorrhaphy, Hx Hysterectomy Physical Exam - Vital signs Vitals: Temp Pulse Resp BP Pulse Ox 100.7 F H 127 H 18 156/95 H 97 05/07/18 16:59 05/07/18 16:59 05/07/18 16:59 05/07/18 16:59 05/07/18 16:59 Course - Vital Signs Vital signs: Temp Pulse Resp BP Pulse Ox 100.7 F H 127 H 18 156/95 H 97 05/07/18 16:59 05/07/18 16:59 05/07/18 16:59 05/07/18 16:59 05/07/18 16:59 Discharge - Discharge Clinical Impression: Viral URI Fever Qualifiers: Fever type: unspecified Qualified Code(s): R50.9 - Fever, unspecified Condition: Good Disposition: HOME, SELF-CARE Instructions: Upper Respiratory Illness ([facility]), Acetaminophen, Fever ([facility]), Ibuprofen (General) ([facility]) Additional Instructions: Follow-up with your primary care physician return to ER symptoms worsen. At this time your chest x-ray is negative for any signs of pneumonia your flu swab was negative for influenza more likely have a viral upper respiratory tract infection please make sure you drink plenty of fluids stay well-hydrated would recommend to stop smoking at this time. Please use inhaler every gave you here in ER 2 puffs every 4 hours for any shortness of breath. Also recommend taking the steroids as prescribed to help out with some your symptoms. Prescriptions: Ibuprofen [Motrin 600 mg Tablet] 600 mg PO Q8HP PRN #21 tablet PRN Reason: Prednisone [Deltasone 20 mg Tablet] 2 tab PO DAILY 5 Days tablet Forms: Return to Work
[2018-05-07 18:55] VITALS: BP 138/87
== END 2018-05-07 18:55 | disposition home or self-care (01) ==
LOC: ER 16:43
DX: J06.9 Acute upper respiratory infection, unspecified (principal); B97.89 Other viral agents as the cause of diseases classified elsewhere; R50.9 Fever, unspecified; F17.200 Nicotine dependence, unspecified, uncomplicated; I10 Essential (primary) hypertension; E11.9 Type 2 diabetes mellitus without complications; Z88.2 Allergy status to sulfonamides
CPT/HCPCS: 99283; 96372; 87804; 71046; A9270 ×2; J1885; J3490; J7512

== ENCOUNTER 2018-05-15 05:00 | Emergency (ER) | payer MEDICARE, MEDICAID ==
[2018-05-15 05:07] VITALS: BP 146/86
--- NOTE | 2018-05-15 05:50 | RADIOLOGY REPORT (SQ) ---
EXAM DESCRIPTION: XR HAND 3 OR MORE VIEWS COMPLETED DATE/TME: 05/15/2018 00:00 CLINICAL HISTORY: 37 years, Female, hit kitchen table with hand COMPARISON: None. FINDINGS: 3 views of the left hand. No acute fracture or dislocation. Normal osseous mineralization. No radiopaque foreign bodies. IMPRESSION: 1. No acute fracture or dislocation. 2010 [employer] [facility] [employer]- All Rights Reserved
--- NOTE | 2018-05-15 06:06 | ER Document Report ---
ED General - General Chief Complaint: Wrist Injury Stated Complaint: WRIST PAIN Time Seen by Provider: 05/15/18 06:04 Notes: Patient is a 37-year-old female that presents to the emergency department for chief complaint of right wrist pain after injury. Patient states that around 2 AM this morning, she accidentally hit her right wrist laterally on her kitchen table. This caused some swelling and pain which brought her to the emergency department. She describes the pain as a 4 out of 10 and aching sensation, she reports the swelling has gone down since her initial injury. She denies noting any numbness, weakness or tingling. She reports that she is right-handed. Denies any other injuries, she did not fall from this incident. Past Medical History: Hypertension, diabetes mellitus Past Surgical History: D&C, hysterectomy, appendectomy Social History: Admits to smoking cigarettes, denies alcohol or drug use Family History: Reviewed and noncontributory for presenting illness Allergies: Reviewed, see documented allergy list. REVIEW OF SYSTEMS: Unless otherwise stated in this report the patient's positive and negative responses for review of systems for constitutional, eyes, ENT, cardiovascular, respiratory, gastrointestinal, neurological, genitourinary, musculoskeletal, and integumentary systems and related systems to the presenting problem are either as stated in the HPI or were not pertinent or were negative for the symptoms and/or complaints related to the presenting medical problem. PHYSICAL EXAMINATION: Vital signs reviewed, nursing noted reviewed. GENERAL: Well-appearing, well-nourished and in no acute distress. HEAD: Atraumatic, normocephalic. EYES: Eyes appear normal, extraocular movements intact, sclera anicteric, conjunctiva are normal. ENT: nares patent, oropharynx clear without exudates. Moist mucous membranes. NECK: Normal range of motion, supple without lymphadenopathy LUNGS: Breath sounds clear to auscultation bilaterally and equal. No wheezes rales or rhonchi. HEART: Regular rate and rhythm without murmurs ABDOMEN: Soft, nontender, normoactive bowel sounds. No rebound, guarding, or rigidity. No masses appreciated. EXTREMITIES: The right wrist has mild swelling laterally, and tenderness over the lateral distal ulna, no gross deformity noted, neurovascularly intact distally, cap refill less than 3 seconds in all digits, excellent strength with extension of all the fingers, and flexion of all fingers, no evidence of tendon injury. Good range of motion of the wrist. The rest the patient's extremity exam is grossly unremarkable, nontender, good range of motion, no pitting or edema. NEUROLOGICAL: No focal neurological deficits. Moves all extremities spontaneously Motor and sensory grossly intact on exam. PSYCH: Normal mood, normal affect. SKIN: Warm, Dry, normal turgor, no rashes or lesions noted on exposed skin TRAVEL OUTSIDE OF THE [place] IN LAST 30 DAYS: No - Related Data Allergies/Adverse Reactions: Sulfa (Sulfonamide Antibiotics) Allergy (Verified 05/07/18 17:22) Past Medical History - Social History Smoking Status: Never Smoker Chew tobacco use (# tins/day): No Frequency of alcohol use: None Drug Abuse: None Family History: CAD, Hypertension Patient has suicidal ideation: No Patient has homicidal ideation: No - Past Medical History Cardiac Medical History: Reports: Hx Hypercholesterolemia, Hx Hypertension Denies: Hx Congestive Heart Failure, Hx Heart Attack Pulmonary Medical History: Reports: Hx Bronchitis Denies: Hx Asthma, Hx COPD, Hx Pneumonia, Hx Tuberculosis Neurological Medical History: Denies: Hx Seizures Endocrine Medical History: Reports: Hx Diabetes Mellitus Type 2 Renal/ Medical History: Denies: Hx End Stage Renal Disease, Hx Kidney Stones, Hx Peritoneal Dialysis GI Medical History: Reports: Hx Gastroesophageal Reflux Disease, Hx Ulcer. Denies: Hx Cirrhosis Musculoskeletal Medical History: Denies Hx Arthritis, Denies Hx Multiple Sclerosis Psychiatric Medical History: Reports: Hx Bipolar Disorder, Hx Depression Denies: Hx Schizophrenia Past Surgical History: Reports: Hx Appendectomy, Hx Cholecystectomy, Hx Gynecologic Surgery, Hx Herniorrhaphy, Hx Hysterectomy Physical Exam - Vital signs Vitals: Temp Pulse Resp BP Pulse Ox 98.1 F 108 H 14 146/86 H 97 05/15/18 05:06 05/15/18 05:06 05/15/18 05:06 05/15/18 05:06 05/15/18 05:06 Course - Re-evaluation Re-evalutation: Patient seen and examined vital signs reviewed. Patient was evaluated and treated as appropriate for the patient's presenting symptoms and complaint, with consideration of any critical or life threatening conditions that may be associated with their obtained history and exam as noted above. Patient was treated with naproxen The patient was re-evaluated and was stable Evaluation was most consistent with x-rays negative for wrist fracture or bony injury, most likely a contusion, will prescribe naproxen advised cool compresses , and follow-up Plan of care was discussed with the patient at this point, after careful consideration I feel that that patient can be discharged from the emergency department, the patient was educated treatments and reasons to return to the emergency department based on their presumed diagnosis as noted above, they were advised to followup with a primary care physician in 2-3 days. Patient was agreeable to plan of care. *Note is created using voice recognition software and may contain spelling, syntax or grammatical errors. Hand X-Ray 05/15/18 00:00 IMPRESSION: 1. No acute fracture or dislocation. 2010 [employer]- All Rights Reserved - Vital Signs Vital signs: Temp Pulse Resp BP Pulse Ox 98.1 F 108 H 14 146/86 H 97 05/15/18 05:06 05/15/18 05:06 05/15/18 05:06 05/15/18 05:06 05/15/18 05:06 Discharge - Discharge Clinical Impression: Contusion of wrist, right Qualifiers: Encounter type: initial encounter Qualified Code(s): S60.211A - Contusion of right wrist, initial encounter Condition: Stable Disposition: HOME, SELF-CARE Instructions: Wrist Sprain ([facility]) Additional Instructions: Apply ice for 20 minutes on 20 minutes off at least 3 times a day to help with the swelling and pain, you can take the anti-inflammatory prescribed every 12 hours as needed for pain as well or you can take acetaminophen 500 mg every 6 hours as needed. Prescriptions: Naproxen 500 mg PO Q12 PRN #20 tablet PRN Reason: wrist pain Referrals: [facility] [Provider Group] - Follow up in 3-5 days (or your primary care. )
[2018-05-15] MEDS ORDERED: NAPROXEN 250 MG TABLET PO ONE (06:44)
== END 2018-05-15 07:22 | disposition home or self-care (01) ==
LOC: ER 05:00
DX: S60.211A Contusion of right wrist, initial encounter (principal); M25.531 Pain in right wrist; W22.03XA Walked into furniture, initial encounter; E11.9 Type 2 diabetes mellitus without complications; I10 Essential (primary) hypertension; Z88.2 Allergy status to sulfonamides
CPT/HCPCS: 99283

== ENCOUNTER 2018-09-13 17:02 | Emergency (ER) | payer MEDICARE, MEDICAID ==
[2018-09-13 17:09] VITALS: BP 140/76
--- NOTE | 2018-09-13 17:50 | ER Document Report ---
ED Medical Screen (RME) - General Chief Complaint: Vaginal Pain Stated Complaint: VAGINAL PAIN, BURNING WITH URINATION Time Seen by Provider: 09/13/18 17:46 Notes: 38 years old female with a history of diabetes hypertension depression, presents today with vulvovaginal swelling, excoriation, vaginal discharge and dysuria for the last few days. TRAVEL OUTSIDE OF THE [place] IN LAST 30 DAYS: No - Related Data Allergies/Adverse Reactions: Sulfa (Sulfonamide Antibiotics) Allergy (Verified 09/13/18 17:04) Past Medical History - Past Medical History Cardiac Medical History: Reports: Hx Hypercholesterolemia, Hx Hypertension Denies: Hx Congestive Heart Failure, Hx Heart Attack Pulmonary Medical History: Reports: Hx Bronchitis Denies: Hx Asthma, Hx COPD, Hx Pneumonia, Hx Tuberculosis Neurological Medical History: Denies: Hx Seizures Endocrine Medical History: Reports: Hx Diabetes Mellitus Type 2 Renal/ Medical History: Denies: Hx End Stage Renal Disease, Hx Kidney Stones, Hx Peritoneal Dialysis GI Medical History: Reports: Hx Gastroesophageal Reflux Disease, Hx Ulcer. Denies: Hx Cirrhosis Musculoskeltal Medical History: Denies Hx Arthritis, Denies Hx Multiple Sclerosis Psychiatric Medical History: Reports: Hx Bipolar Disorder, Hx Depression Denies: Hx Schizophrenia Past Surgical History: Reports: Hx Appendectomy, Hx Cholecystectomy, Hx Gynecologic Surgery, Hx Herniorrhaphy, Hx Hysterectomy - Immunizations History of Influenza Vaccine for 04/2017 - 09/2017 Season: No Physical Exam - Vital signs Vitals: Temp Pulse Resp BP Pulse Ox 98.4 F 88 16 140/76 H 98 09/13/18 17:07 09/13/18 17:07 09/13/18 17:07 09/13/18 17:07 09/13/18 17:07 Course - Vital Signs Vital signs: Temp Pulse Resp BP Pulse Ox 98.4 F 88 16 140/76 H 98 09/13/18 17:07 09/13/18 17:07 09/13/18 17:07 09/13/18 17:07 09/13/18 17:07
[2018-09-13 18:54] LABS: ABSOLUTE BASOPHILS # (AUTO) 0.1 10^3/uL (0.0-0.2); ABSOLUTE EOSINOPHILS # (AUTO) 0.2 10^3/uL (0.0-0.6); ABSOLUTE LYMPHOCYTES (AUTO) 3.1 10^3/uL (0.5-4.7); ABSOLUTE MONOCYTES (AUTO) 0.7 10^3/uL (0.1-1.4); ABSOLUTE NEUT (AUTO) 4.7 10^3/uL (1.7-8.2); BASOPHILS % (AUTO) 1.2 % (0-2); EOSINOPHILS % (AUTO) 2.1 % (0-6); HEMATOCRIT 39.6 % (36.0-47.0); LYMPHOCYTES % (AUTO) 35.2 % (13-45); MEAN CORPUSCULAR HEMOGLOBIN 28.5 pg (27.0-33.4); MEAN CORPUSCULAR HGB CONC 32.9 g/dL (32.0-36.0); MEAN CORPUSCULAR VOLUME 87 fl (80-97); MONOCYTES % (AUTO) 7.7 % (3-13); PLATELET COUNT 344 10^3/uL (150-450); RED BLOOD COUNT 4.58 10^6/uL (3.72-5.28); RED CELL DISTRIBUTION WIDTH 13.3 % (11.5-14.0); SEGMENTED NEUTROPHILS % (AUTO) 53.8 % (42-78); TOTAL CELLS COUNTED % (AUTO) 100 %; WHITE BLOOD COUNT 8.7 10^3/uL (4.0-10.5)
[2018-09-13 18:57] LABS: APPEARANCE,URINE CLEAR; BILIRUBIN,URINE NEGATIVE (NEGATIVE); COLOR,URINE STRAW; GLUCOSE, URINE >=500 mg/dL (NEGATIVE); KETONES,URINE NEGATIVE (NEGATIVE); LEUKOCYTE ESTERASE,URINE NEGATIVE (NEGATIVE); NITRITE,URINE NEGATIVE (NEGATIVE); PROTEIN,URINE NEGATIVE (NEGATIVE); URINE SPECIFIC GRAVITY 1.028; UROBILINOGEN,URINE NEGATIVE mg/dL (<2.0)
[2018-09-13] MEDS ORDERED: LIDOCAINE 2% JELLY 30 ML TUBE TOP ONE (20:30)
[2018-09-13 20:32] LABS: CHLAM PCR NOT DETECTED (NOT DETECT); GON PCR NOT DETECTED (NOT DETECT)
[2018-09-13 20:43] LABS: BACTERIA (WET MOUNT) 4+ BACTERIA SEEN; EPITHELIALS (WET MOUNT) 4+ EPITHELIALS SEEN; RBCS (WET MOUNT) NO RBCS SEEN; T.VAGINALIS (WET MOUNT) NO TRICHOMONAS SEEN; WBCS (WET MOUNT) 2+ WBCS SEEN; YEAST (WET MOUNT) NO YEAST SEEN
[2018-09-13] MEDS ORDERED: LIDOCAINE 2% JELLY 5 ML TUBE TOP ONE (21:07)
[2018-09-13] MEDS ORDERED: METRONIDAZOLE 500 MG TABLET PO ONE (21:14)
--- NOTE | 2018-09-13 21:14 | ER Document Report ---
ED GI/ - General Chief Complaint: Vaginal Pain Stated Complaint: VAGINAL PAIN, BURNING WITH URINATION Time Seen by Provider: 09/13/18 17:46 Primary Care Provider: ETELVINA BAILEY MD [Primary Care Provider] - Follow up as needed Mode of Arrival: Ambulatory Information source: Patient Notes: Patient is a 38-year-old female who presents with external vaginal pain that is been ongoing for approximately 1 week. She also reports swelling to the area, denies any new sexual partners, denies possibility of STDs. Denies any abnormal discharge. TRAVEL OUTSIDE OF THE [place] IN LAST 30 DAYS: No - Related Data Allergies/Adverse Reactions: Sulfa (Sulfonamide Antibiotics) Allergy (Verified 09/13/18 17:04) Past Medical History - General Information source: Patient - Social History Smoking Status: Current Every Day Smoker Chew tobacco use (# tins/day): No Frequency of alcohol use: None Drug Abuse: None Family History: CAD, Hypertension Patient has suicidal ideation: No Patient has homicidal ideation: No - Past Medical History Cardiac Medical History: Reports: Hx Hypercholesterolemia, Hx Hypertension Denies: Hx Congestive Heart Failure, Hx Heart Attack Pulmonary Medical History: Reports: Hx Bronchitis Denies: Hx Asthma, Hx COPD, Hx Pneumonia, Hx Tuberculosis Neurological Medical History: Denies: Hx Seizures Endocrine Medical History: Reports: Hx Diabetes Mellitus Type 2 Renal/ Medical History: Denies: Hx End Stage Renal Disease, Hx Kidney Stones, Hx Peritoneal Dialysis GI Medical History: Reports: Hx Gastroesophageal Reflux Disease, Hx Ulcer. Denies: Hx Cirrhosis Musculoskeletal Medical History: Denies Hx Arthritis, Denies Hx Multiple Sclerosis Psychiatric Medical History: Reports: Hx Bipolar Disorder, Hx Depression Denies: Hx Schizophrenia Past Surgical History: Reports: Hx Appendectomy, Hx Cholecystectomy, Hx Gynecologic Surgery, Hx Herniorrhaphy, Hx Hysterectomy Review of Systems - Review of Systems Constitutional: No symptoms reported EENT: No symptoms reported Cardiovascular: No symptoms reported Respiratory: No symptoms reported Gastrointestinal: No symptoms reported Genitourinary: No symptoms reported Female Genitourinary: Vaginal discharge, Other - Vaginal swelling, itching Musculoskeletal: No symptoms reported Skin: No symptoms reported Hematologic/Lymphatic: No symptoms reported Neurological/Psychological: No symptoms reported Physical Exam - Vital signs Vitals: Temp Pulse Resp BP Pulse Ox 98.4 F 88 16 140/76 H 98 09/13/18 17:07 09/13/18 17:07 09/13/18 17:07 09/13/18 17:07 09/13/18 17:07 - Notes Notes: PHYSICAL EXAMINATION: GENERAL: Well-appearing, well-nourished and in no acute distress. HEAD: Atraumatic, normocephalic. EYES: Pupils equal round and reactive to light, extraocular movements intact, conjunctiva are normal. ENT: Nares patent, oropharynx clear without exudates. Moist mucous membranes. NECK: Normal range of motion, supple without lymphadenopathy LUNGS: Breath sounds clear to auscultation bilaterally and equal. No wheezes rales or rhonchi. HEART: Regular rate and rhythm without murmurs ABDOMEN: Soft, nontender, nondistended abdomen. No guarding, no rebound. No masses appreciated. Female : External genitalia with swelling to the labia majora. Speculum exam reveals small amount of white discharge from the cervix, no cervical motion tenderness, no obvious adnexal masses or tenderness. Musculoskeletal: Normal range of motion, no pitting or edema. No cyanosis. NEUROLOGICAL: Cranial nerves grossly intact. Normal speech, normal gait. Normal sensory, motor exams PSYCH: Normal mood, normal affect. SKIN: Warm, Dry, normal turgor, no rashes or lesions noted. Course - Re-evaluation Re-evalutation: CBC is unremarkable. Urinalysis with greater than 500 glucose in the urine, patient is a diabetic. 3+ bacteria on wet mount. GC and chlamydia are negative. Patient will be treated for bacterial vaginosis as well as an external vaginal rash. Patient encouraged to follow-up with gynecology. - Vital Signs Vital signs: Temp Pulse Resp BP Pulse Ox 98.4 F 88 16 140/76 H 98 09/13/18 17:07 09/13/18 17:07 09/13/18 17:07 09/13/18 17:07 09/13/18 17:07 - Laboratory Result Diagrams: 09/13/18 18:31 Laboratory results interpreted by me: 09/13/18 18:31 Urine Glucose (UA) >=500 H Discharge - Discharge Clinical Impression: Vaginal irritation, Bacterial vaginitis Condition: Stable Disposition: HOME, SELF-CARE Additional Instructions: Vaginosis, Bacterial Your exam shows you have bacterial vaginosis. This condition is due to an overgrowth of bacteria in the vagina. Symptoms may include vaginal itching or pain, a smelly discharge, and sometimes burning with urination. Normally this is not transmitted by sexual contact. Vaginosis can be treated with oral or topical antibiotics. Metronidazole (Flagyl) pills are usually effective. Topical vaginal creams include Cleocin and Metro-Gel. You should avoid sexual contact until your symptoms are all better. Call the doctor if you develop pelvic pain, fever, or problems with urination, or if you don't improve as expected. Please take the medication that I have prescribed, take the entire course even if your symptoms resolve. Please use the topical cream as directed. It is very important that you follow-up with your [facility] provider for a follow-up, call them tomorrow to schedule an appointment. Prescriptions: Nystatin/Triamcin [Mycolog-II Cream 15 gm] 1 gm TP BID #2 tube Referrals: ETELVINA BAILEY MD [Primary Care Provider] - Follow up as needed
== END 2018-09-13 21:46 | disposition home or self-care (01) ==
LOC: ER 17:02
DX: N76.0 Acute vaginitis (principal); B96.89 Other specified bacterial agents as the cause of diseases classified elsewhere; R21 Rash and other nonspecific skin eruption; R10.2 Pelvic and perineal pain; F17.200 Nicotine dependence, unspecified, uncomplicated; E11.9 Type 2 diabetes mellitus without complications; I10 Essential (primary) hypertension; Z88.2 Allergy status to sulfonamides
CPT/HCPCS: 99283; 36415; 87210; 85025; 81025; 81001; 87250; 87491; 87591; A9270

== ENCOUNTER 2018-10-18 17:01 | Emergency (ER) | payer MEDICARE, MEDICAID ==
[2018-10-18] MEDS ORDERED: HYDROCODONE/ACETAMINOPHEN 5-325 MG TABLET PO ONE (19:07)
--- NOTE | 2018-10-18 19:10 | ER Document Report ---
ED Medical Screen (RME) - General Chief Complaint: Abscess Stated Complaint: ABSCESS Time Seen by Provider: 10/18/18 19:02 Primary Care Provider: ETELVINA BAILEY MD [Primary Care Provider] - Follow up as needed Mode of Arrival: Ambulatory Information source: Patient TRAVEL OUTSIDE OF THE [place] IN LAST 30 DAYS: No - HPI Notes: 10/18/18 19:08 Rapid medical exam triage note : patient is a pleasant 38-year-old black female insulin-dependent diabetic presents with report of a left labial abscess of gradual progression over the course of the last 4 days. The patient denies any other vaginal discharge or bleeding. No abdominal pain or nausea or vomiting. She states her blood sugars have been stable. No chest pain or difficulty breathing. No previous history of abscesses or history of MRSA. On exam 38-year-old female no obvious distress HEENT conjunctiva clear oropharynx clear Neck supple nontender cardiovascular regular rate and rhythm without appreciable murmur gallop or rubs. Lungs clear to auscultation Abdomen nontender Extremities no cyanosis clubbing or edema. Genitourinary exam unable to exam in the triage setting. Patient will need further evaluation of the abscess to see if it needs drainage. Blood sugar was 278, which patient states was typical for her. Please see partner's note for further evaluation and care. - Related Data Allergies/Adverse Reactions: Sulfa (Sulfonamide Antibiotics) Allergy (Verified 09/13/18 17:04) Past Medical History - Social History Chew tobacco use (# tins/day): No Frequency of alcohol use: None Drug Abuse: None - Past Medical History Cardiac Medical History: Reports: Hx Hypercholesterolemia, Hx Hypertension Denies: Hx Congestive Heart Failure, Hx Heart Attack Pulmonary Medical History: Reports: Hx Bronchitis Denies: Hx Asthma, Hx COPD, Hx Pneumonia, Hx Tuberculosis Neurological Medical History: Denies: Hx Seizures Endocrine Medical History: Reports: Hx Diabetes Mellitus Type 2 Renal/ Medical History: Denies: Hx End Stage Renal Disease, Hx Kidney Stones, Hx Peritoneal Dialysis GI Medical History: Reports: Hx Gastroesophageal Reflux Disease, Hx Ulcer. Denies: Hx Cirrhosis Musculoskeltal Medical History: Denies Hx Arthritis, Denies Hx Multiple Sclerosis Psychiatric Medical History: Reports: Hx Bipolar Disorder, Hx Depression Denies: Hx Schizophrenia Past Surgical History: Reports: Hx Appendectomy, Hx Cholecystectomy, Hx Gynecologic Surgery, Hx Herniorrhaphy, Hx Hysterectomy - Immunizations History of Influenza Vaccine for 04/2017 - 09/2017 Season: No Physical Exam - Vital signs Vitals: Temp Pulse Resp BP Pulse Ox 98.0 F 83 16 133/73 H 98 10/18/18 17:18 10/18/18 17:18 10/18/18 17:18 10/18/18 17:18 10/18/18 17:18 Course - Vital Signs Vital signs: Temp Pulse Resp BP Pulse Ox 98.0 F 83 16 133/73 H 98 10/18/18 17:18 10/18/18 17:18 10/18/18 17:18 10/18/18 17:18 10/18/18 17:18 Doctor's Discharge - Discharge Referrals: ETELVINA BAILEY MD [Primary Care Provider] - Follow up as needed
[2018-10-18] MEDS ORDERED: DOXYCYCLINE HYCLATE 100 MG TABLET PO ONE (20:40)
--- NOTE | 2018-10-18 20:42 | ER Document Report ---
ED General - General Chief Complaint: Abscess Stated Complaint: ABSCESS Time Seen by Provider: 10/18/18 19:02 Primary Care Provider: ETELVINA BAILEY MD [Primary Care Provider] - Follow up as needed Mode of Arrival: Ambulatory Information source: Patient TRAVEL OUTSIDE OF THE [place] IN LAST 30 DAYS: No - HPI Patient complains to provider of: Left vaginal abscess Onset: Other - 3 days Onset/Duration: Gradual Quality of pain: Sharp Severity: Mild Pain Level: 1 Associated symptoms: denies: Chills, Fever Exacerbated by: Denies Relieved by: Denies Similar symptoms previously: No Recently seen / treated by doctor: No Notes: 38-year-old -[place] female with left labial abscess. It opened and drained on its own. No fever or chills - Related Data Allergies/Adverse Reactions: Sulfa (Sulfonamide Antibiotics) Allergy (Verified 09/13/18 17:04) Past Medical History - General Information source: Patient - Social History Smoking Status: Current Every Day Smoker Chew tobacco use (# tins/day): No Frequency of alcohol use: None Drug Abuse: None Family History: Reviewed & Not Pertinent, CAD, Hypertension Patient has suicidal ideation: No Patient has homicidal ideation: No - Past Medical History Cardiac Medical History: Reports: Hx Hypercholesterolemia, Hx Hypertension Denies: Hx Congestive Heart Failure, Hx Heart Attack Pulmonary Medical History: Reports: Hx Bronchitis Denies: Hx Asthma, Hx COPD, Hx Pneumonia, Hx Tuberculosis Neurological Medical History: Denies: Hx Seizures Endocrine Medical History: Reports: Hx Diabetes Mellitus Type 2 Renal/ Medical History: Denies: Hx End Stage Renal Disease, Hx Kidney Stones, Hx Peritoneal Dialysis GI Medical History: Reports: Hx Gastroesophageal Reflux Disease, Hx Ulcer. Denies: Hx Cirrhosis Musculoskeletal Medical History: Denies Hx Arthritis, Denies Hx Multiple Sclerosis Psychiatric Medical History: Reports: Hx Bipolar Disorder, Hx Depression Denies: Hx Schizophrenia Past Surgical History: Reports: Hx Appendectomy, Hx Cholecystectomy, Hx Gynecologic Surgery, Hx Herniorrhaphy, Hx Hysterectomy Review of Systems - Review of Systems Notes: Constitutional: No fevers. No chills. EENT: No eye redness. No eye pain. No ear pain. No sore throat. Cardiovascular: No chest pain. No palpitations. Respiratory: No cough. No shortness of breath. No respiratory distress. Gastrointestinal: No abdominal pain. No nausea, vomiting, or diarrhea. Genitourinary: Atraumatic. Left labial abscess Musculoskeletal: Atraumatic. No swelling. No deformities. Skin: No rash or lesions. Lymphatic: No swollen lymph nodes. Neurologic: No headache. No syncope. Psychiatric: No suicidal or homicidal ideation. Physical Exam - Vital signs Vitals: Temp Pulse Resp BP Pulse Ox 98.0 F 83 16 133/73 H 98 10/18/18 17:18 10/18/18 17:18 10/18/18 17:18 10/18/18 17:18 10/18/18 17:18 - Notes Notes: General: Well-developed, well-nourished. In no acute distress. Non-toxic appearing. Cardiac: Well-perfused. Regular rate and rhythm. No murmurs, rubs, or gallops. Pulmonary: No respiratory distress. No cyanosis. Bilateral lung fiels are clear to auscultation. Abdominal: Non-distended. Non-rigid. Bowels sounds are present in all four quadrants. No guarding or rebound. HEENT: Head is atraumatic. Conjunctivae not reddened. No tearing. PERRL. EOMI. Orbits atraumatic. No periorbital swelling or erythema. Oropharynx is without erythema, swelling, or exudates. Neck: Supple. No adenopathy. No meningismus. Dermatologic: Warm with good turgor. No rash. Atraumatic. Chest: Atraumatic. No chest wall tenderness to palpation. Musculoskeletal: Moves all extremities well. No range of motion deficits. no muscular or joint tenderness. No paraspinal muscle tenderness. no midline spinal tenderness or step-off. Genitourinary: Small semi-fluctuant abscess left labia. Tender to palpate. Slight drainage already seen. Neurologic: No gross neurologic deficits. Psychiatric: Normal mood. Course - Re-evaluation Re-evalutation: 10/18/18 20:41 Patient was offered an incision and drainage. Declines procedure in favor of hot compresses and antibiotics. I will have her return in 2 days if things are not getting any better - Vital Signs Vital signs: Temp Pulse Resp BP Pulse Ox 98.0 F 83 16 133/73 H 98 10/18/18 17:18 10/18/18 17:18 10/18/18 17:18 10/18/18 17:18 10/18/18 17:18 - Laboratory Laboratory results interpreted by me: 10/18/18 19:06 POC Glucose 278 H Discharge - Discharge Clinical Impression: Abscess of vagina Condition: Good Disposition: HOME, SELF-CARE Instructions: Abscess ([facility]), Oral Narcotic Medication ([facility]), Doxycycline ([facility]) Additional Instructions: Apply slightly steamy clean washcloth to the area several times a day to help the abscess drain. Take all antibiotics as directed. Return as needed if any worse Prescriptions: Doxycycline Hyclate 100 mg PO BID #20 capsule Tramadol HCl/Acetaminophen [Ultracet 37.5 mg/325 mg Tablet] 1 each PO Q6H #12 tablet Referrals: ETELVINA BAILEY MD [Primary Care Provider] - Follow up in 3-5 days
[2018-10-18 21:24] VITALS: BP 136/82
== END 2018-10-18 21:31 | disposition home or self-care (01) ==
LOC: ER 17:01
DX: N76.0 Acute vaginitis (principal); F17.200 Nicotine dependence, unspecified, uncomplicated; E78.00 Pure hypercholesterolemia, unspecified; I10 Essential (primary) hypertension; E11.9 Type 2 diabetes mellitus without complications; Z88.2 Allergy status to sulfonamides; Z90.49 Acquired absence of other specified parts of digestive tract
CPT/HCPCS: 99283; 82962; A9270 ×2